=== PATIENT | female | born 1970 | race Caucasian/White ===

== ENCOUNTER 2019-03-06 06:28 | Inpatient (IN) | payer OTHER ==
[2019-02-26 15:41] LABS: BASOPHILS % (AUTO) 0.8 % (0-1); EOSINOPHILS # (AUTO) 0.1 X10'3 (0-0.9); EOSINOPHILS % (AUTO) 1.1 % (0-6); LYMPHOCYTES # (AUTO) 1.2 X10'3 (1.1-4.8); LYMPHOCYTES % (AUTO) 21.1 % (21-51); MEAN CORPUSCULAR HEMOGLOBIN 32.8 PG (27.0-31.0); MEAN CORPUSCULAR HGB CONC 34.5 g/dL (33.0-36.5); MEAN CORPUSCULAR VOLUME 95.1 FL (78-98); MONOCYTES # (AUTO) 0.5 X10'3 (0-0.9); MONOCYTES % (AUTO) 8.1 % (2-12); NEUTROPHILS # (AUTO) 4.1 X10'3 (1.8-7.7); NEUTROPHILS % (AUTO) 68.9 % (42-75); PRE OP HEMATOCRIT 42.5 % (35.0-45.0); PRE OP HEMOGLOBIN 14.6 g/dL (12.0-16.0); PRE OP PLATELET COUNT 210 X10'3 (140-440); RED BLOOD COUNT 4.47 X10'6 (4.20-5.60); RED CELL DISTRIBUTION WIDTH 12.8 % (11.5-14.5)
[2019-02-26 15:55] LABS: ALBUMIN/GLOBULIN RATIO 1.1 (1.1-1.5); ALKALINE PHOSPHATASE 78 IU/L (46-116); BLOOD UREA NITROGEN 18 MG/DL (7-18); CHLORIDE 104 MMOL/L (99-107); CREATININE 1.06 MG/DL (0.40-0.90); PRE OP ALT 34 U/L (30-65); PRE OP ANION GAP 6 (8-16); PRE OP AST 18 U/L (10-37); PRE OP BILIRUB, TOTAL 0.2 MG/DL (0.0-1.0); PRE OP GLUCOSE 85 MG/DL (70-104); PRE OP SODIUM 140 MMOL/L (135-145); TOTAL CARBON DIOXIDE 29.6 MMOL/L (24-32); TOTAL PROTEIN 7.5 G/DL (6.4-8.2); eGFR 55 ML/MIN
[2019-02-26 16:05] LABS: CLARITY,URINE CLEAR (Clear); COLOR,URINE YELLOW (Yellow); GLUCOSE, URINE NEGATIVE (Neg); KETONES,URINE NEGATIVE (Neg); LEUKOCYTE ESTERASE ,URINE NEGATIVE (Neg); NITRITES, URINE NEGATIVE (Neg); OCCULT BLOOD,URINE NEGATIVE (Neg); PH,URINE 5.5 (4.8-8.0); PROTEIN,URINE NEGATIVE (Neg); UROBILINOGEN,URINE 0.2 E.U/dL (0.2-1.0)
[2019-02-26 16:10] LABS: UA COLLECTION TYPE CLN CATCH MIDSTREAM
[~2019-03-06] VITALS: Ht 157.5 cm; Wt 72.6 kg
[2019-03-06] VITALS (24 sets, daily range): BP systolic 83–125; BP diastolic 50–76
[~2019-03-06 06:28] MED LIST: CELE100C98 PO; TERB250T4 PO; VANCOMYCIN INJ 1000 MG in NORMAL SALINE 250ml IV.SOLN IV ONE; albuterol 2.5 MG/3 ML nebule NEB ONE; cefazolin/dext.iso 2gm/100 ML IV ONE; famotidine 20mg tablet PO ONE; ringers solution, lacted 1,000 ML IV SCH
[2019-03-06] MEDS ORDERED: LIDOcaine 1% (10mg/ml) 2ml vial ONE (06:39)
[2019-03-06] MEDS ORDERED: ketorolac trometh. 30mg/ml inj. ONE (06:42)
[2019-03-06] MEDS ORDERED: ROPIVAcaine 0.5% (5mg/ml) 30ml vial ONE (06:43)
[2019-03-06] MEDS ORDERED: MIDAZolam 1mg/ml 10ml vial ONE (07:25)
[2019-03-06] MEDS ORDERED: morphine /PF 1mg/ml 10ml inj. ONE (07:26)
[2019-03-06] MEDS ORDERED: fentaNYL/PF 50MCG/1 ML 2ML syringe ONE (07:26)
[2019-03-06] MEDS ORDERED: propofol inj 20 ML IV ONE (08:03)
[2019-03-06] MEDS ORDERED: ePHEDrine 50MG/ML INJ. ONE (08:03)
[2019-03-06] MEDS ORDERED: naloxone 2mg/2ml inj 1.5 MG in normal saline 500ml IV soln 500 ML IV PRN (08:41)
[2019-03-06] MEDS ORDERED: ringers solution, lacted 1,000 ML IV SCH (08:41)
[2019-03-06] MEDS ORDERED: ondansetron/PF 4mg/2ml inj IV PRN ×3 (08:45→09:55)
[2019-03-06] MEDS ORDERED: morphine 4 MG/ML inj SYRINge IV PRN ×2 (08:45)
[2019-03-06] MEDS ORDERED: proCHLORperazine 10 MG/2 ml inj IV PRN (08:45)
[2019-03-06] MEDS ORDERED: diphenhydrAMINE 50 mg/ml inj IV PRN (08:45)
[2019-03-06] MEDS ORDERED: meperidine/PF 25mg/ml syringe IV PRN ×3 (08:45)
[2019-03-06] MEDS ORDERED: diphenhydrAMINE 50 mg/ml inj ONE (09:19)
--- NOTE | 2019-03-06 09:37 | NUR ---
Received from OR via BED , accompanied by Anesthesiologist DR ERNST and report given by Anesthesiologist. PT DROWSY, DENIES PAIN, RIGHT HIP W/GAUZE DRSG COVERING INCISION CDI, HEMOVAC TO BULB SUCTION, CALDWELL CATHETER TO GRAVITY DRAINAGE W/YELLOW URINE DRAINING. Addendum: 03/06/19 at 1008 by Le Mccauley RN Amended: Links added.
[2019-03-06] MEDS ORDERED: bisacodyl 10mg suppository rectal RC PRN (09:55)
[2019-03-06] MEDS ORDERED: mag hydrox/Alum hydrox/simeth 30ml oral suspension PO PRN (09:55)
[2019-03-06] MEDS ORDERED: magnesium hydroxide 30ml (MOM) UD suspension PO PRN (09:55)
[2019-03-06] MEDS ORDERED: acetaminophen 325mg tablet PO PRN (09:55)
[2019-03-06] MEDS ORDERED: diphenhydrAMINE 25mg capsule PO PRN ×2 (09:55)
[2019-03-06] MEDS ORDERED: metoclopramide 5 mg/ml inj IV PRN (09:55)
[2019-03-06] MEDS ORDERED: ceFAZolin 1GM/D5W- ADD-VANTAGE 50 ML IV ONE (10:05)
--- NOTE | 2019-03-06 11:00 | NUR ---
Patient in room ORTHO 4023. I have received report from Le BARRETO in recovery, and had the opportunity to ask questions and assume patient care.
--- NOTE | 2019-03-06 11:37 | NUR ---
PT COMFORTABLE, ITCHING SLIGHTLY IMPROVED W/NARCAN DRIP, PT ABLE TO WIGGLE AND MOVE LOWER LEGS, DERMATOME LEVEL S 3-4. Report called to receiving nurse. Transferred via BED 1 BAG OF PT Belongings SENT W/PT TO ROOM 4023A, RECEIVING RN AT BEDSIDE TO RECEIVE PT, BLL, CALL LIGHT GIVEN, SIDE RAILS UP X 2. Special Issues communicated to receiving nurse. YES. Addendum: 03/06/19 at 1156 by Le Mccauley RN Amended: Links added.
--- NOTE | 2019-03-06 11:50 | NUR ---
Pt arrived to the floor, alert and oriented, no c/o pain. Tucked in, repositioned, provided refreshments, started post-op vitals.
[2019-03-06] MEDS: acetaminophen 325mg tablet PO SCH ×2 (14:08→20:57)
[2019-03-06] MEDS: HYDROcodone/acetaminophen 10/325mg tab PO PRN ×3 (14:51→22:44)
[2019-03-06] MEDS: ceFAZolin 1GM/D5W- ADD-VANTAGE 50 ML IV SCH (16:11)
[2019-03-06] MEDS: potassium cl 20mEq in 1/2 NS 1,000 ML IV SCH ×2 (17:35→17:54)
--- NOTE | 2019-03-06 18:29 | NUR ---
Problems reprioritized. Patient report given, questions answered & plan of care reviewed with Brittani.
[2019-03-06] MEDS ORDERED: vancomycin/NS 1 GM ADD-VANTAGE 250 ML IV SCH (20:00)
[2019-03-06] MEDS: sennosides 8.6mg tablet PO SCH (20:56)
[2019-03-06] MEDS: ascorbic acid 500mg tablet PO SCH (20:57)
[2019-03-07] VITALS: BP 94/60
[2019-03-07] MEDS: ceFAZolin 1GM/D5W- ADD-VANTAGE 50 ML IV SCH (00:37)
[2019-03-07] MEDS: acetaminophen 325mg tablet PO SCH ×3 (02:00→14:00)
[2019-03-07 02:31] VITALS: BP 84/60
[2019-03-07] MEDS: potassium cl 20mEq in 1/2 NS 1,000 ML IV SCH ×3 (04:00→17:54)
[2019-03-07] MEDS: HYDROcodone/acetaminophen 10/325mg tab PO PRN ×4 (05:01→18:44)
[2019-03-07 06:00] VITALS: BP 95/52
[2019-03-07 06:21] LABS: BASOPHILS % (AUTO) 0.8 % (0-1); EOSINOPHILS # (AUTO) 0.1 X10'3 (0-0.9); EOSINOPHILS % (AUTO) 1.9 % (0-6); HEMATOCRIT 26.3 % (35.0-45.0); LYMPHOCYTES # (AUTO) 0.7 X10'3 (1.1-4.8); LYMPHOCYTES % (AUTO) 15.5 % (21-51); MEAN CORPUSCULAR HEMOGLOBIN 32.2 PG (27.0-31.0); MEAN CORPUSCULAR HGB CONC 34.1 g/dL (33.0-36.5); MEAN CORPUSCULAR VOLUME 94.6 FL (78-98); MEAN PLATELET VOLUME 9.3 FL (7.4-10.4); MONOCYTES # (AUTO) 0.4 X10'3 (0-0.9); MONOCYTES % (AUTO) 9.4 % (2-12); NEUTROPHILS # (AUTO) 3.1 X10'3 (1.8-7.7); NEUTROPHILS % (AUTO) 72.4 % (42-75); PLATELET COUNT 143 X10'3 (140-440); RED BLOOD COUNT 2.78 X10'6 (4.20-5.60); RED CELL DISTRIBUTION WIDTH 12.3 % (11.5-14.5); WHITE BLOOD COUNT 4.3 X10'3 (4.5-11.0)
[2019-03-07 06:29] LABS: ANION GAP 4 (8-16); CHLORIDE 103 MMOL/L (99-107); POTASSIUM 4.4 MMOL/L (3.5-5.1); SODIUM 133 MMOL/L (135-145); TOTAL CARBON DIOXIDE 25.9 MMOL/L (24-32)
--- NOTE | 2019-03-07 06:43 | NUR ---
reported to days. noted Mathias to see patient. answered questions pt had.
[2019-03-07] MEDS: terbinafine 250mg tablet PO SCH (07:51)
[2019-03-07] MEDS: multivitamins, therapeutics tablet PO SCH (07:51)
[2019-03-07] MEDS: ascorbic acid 500mg tablet PO SCH ×2 (07:51→19:43)
[2019-03-07] MEDS: enoxaparin 40mg/0.4ml syringe SQ SCH (07:52)
[2019-03-07 10:00] VITALS: BP 97/59
--- NOTE | 2019-03-07 15:58 | NUR ---
Pt s/p arthroplasty to right hip seen at bedside however pt unavailable. Written protein education with RD contact information left at bedside. Will remain available. Addendum: 03/07/19 at [address] Amended: Links added.
[2019-03-07 18:00] VITALS: BP 107/60
--- NOTE | 2019-03-07 18:32 | NUR ---
Problems reprioritized. Patient report given, questions answered & plan of care reviewed with [place] BARRETO.
[2019-03-07] MEDS: sennosides 8.6mg tablet PO SCH (19:45)
--- NOTE | 2019-03-07 19:58 | NUR ---
Patient in room ORTHO 4023. I have received report from Catrina BARRETO and had the opportunity to ask questions and assume patient care.
[2019-03-07 22:00] VITALS: BP 103/68
[2019-03-08] MEDS: HYDROcodone/acetaminophen 10/325mg tab PO PRN ×4 (01:34→13:11)
--- NOTE | 2019-03-08 05:31 | NUR ---
Pt drain and salvador catheter removed at this time intact and with no complications. Drain site covered with gauze and paper tape.
[2019-03-08 06:00] VITALS: BP 105/71
--- NOTE | 2019-03-08 06:25 | NUR ---
Patient in room ORTHO 4023. I have received report from [place] and had the opportunity to ask questions and assume patient care.
--- NOTE | 2019-03-08 06:25 | NUR ---
Problems reprioritized. Patient report given, questions answered & plan of care reviewed with Luz BARRETO.
[2019-03-08 07:54] LABS: BASOPHILS % (AUTO) 0.5 % (0-1); EOSINOPHILS # (AUTO) 0.1 X10'3 (0-0.9); HEMATOCRIT 25.9 % (35.0-45.0); HEMOGLOBIN 8.9 g/dl (12.0-16.0); LYMPHOCYTES # (AUTO) 0.8 X10'3 (1.1-4.8); LYMPHOCYTES % (AUTO) 14.6 % (21-51); MEAN CORPUSCULAR HEMOGLOBIN 32.4 PG (27.0-31.0); MEAN CORPUSCULAR HGB CONC 34.2 g/dL (33.0-36.5); MEAN CORPUSCULAR VOLUME 94.7 FL (78-98); MEAN PLATELET VOLUME 9.1 FL (7.4-10.4); MONOCYTES # (AUTO) 0.5 X10'3 (0-0.9); MONOCYTES % (AUTO) 8.3 % (2-12); NEUTROPHILS # (AUTO) 4.3 X10'3 (1.8-7.7); NEUTROPHILS % (AUTO) 75.6 % (42-75); PLATELET COUNT 154 X10'3 (140-440); RED BLOOD COUNT 2.74 X10'6 (4.20-5.60); RED CELL DISTRIBUTION WIDTH 12.6 % (11.5-14.5); WHITE BLOOD COUNT 5.7 X10'3 (4.5-11.0)
[2019-03-08] MEDS: terbinafine 250mg tablet PO SCH (09:27)
[2019-03-08] MEDS: ascorbic acid 500mg tablet PO SCH (09:28)
[2019-03-08] MEDS: enoxaparin 40mg/0.4ml syringe SQ SCH (09:28)
[2019-03-08] MEDS: multivitamins, therapeutics tablet PO SCH (09:28)
[2019-03-08 10:00] VITALS: BP 125/68
--- NOTE | 2019-03-08 17:33 | NUR ---
Reviewed discharge instructions with pt. Pt verbalized understanding. Pt is alert, oriented and in good spirits. Pt does not have c/o pain at this time. All of pt's belongings were returned to pt. Pt was wheeled downstairs to be driven home by her spouse.
== END 2019-03-08 17:30 | disposition home or self-care (01) | DRG 470 ==
LOC: PAS IN 06:28 → EDSTATUS 09:45 → ORTHO 4S 11:45
PROVIDERS: ADMIT Orthopaedic Surgery; ATTEND Orthopaedic Surgery
PROC: 0SR904Z Replacement of Right Hip Joint with Ceramic on Polyethylene Synthetic Substitute, Open Approach (ICD-10-PCS; principal; 2019-03-06 07:16)
DX: M16.0 Bilateral primary osteoarthritis of hip (principal); D62 Acute posthemorrhagic anemia; M70.61 Trochanteric bursitis, right hip; F41.9 Anxiety disorder, unspecified; F17.209 Nicotine dependence, unspecified, with unspecified nicotine-induced disorders; E66.8 Other obesity; Z68.29 Body mass index [BMI] 29.0-29.9, adult; Z90.710 Acquired absence of both cervix and uterus; Z80.9 Family history of malignant neoplasm, unspecified; Z79.899 Other long term (current) drug therapy
CPT/HCPCS: Z7506; Z7508; 36415; 73502; 76000; 80051; 80053; 81003; 82948; 85025; 85610; 85730; 86885; 86900; 86901; 87081; 94640; 97110; 97116; 97161; 97530; A6250; A6258; A6446; A6449; A6455; A7000; C1758; C1776; G0378; J0690; J1200; J1644; J1650; J1885; J2001; J2250; J2270; J2310; J2704; J2795; J3010; J3370; J3480; J7030; J7040; J7120; Q0163

== ENCOUNTER 2021-08-14 05:19 | Emergency (ER) | payer BC, OTHER ==
[~2021-08-14] VITALS: Ht 157.5 cm; Wt 72.0 kg
[~2021-08-14 05:19] MED LIST changes: -TERB250T4 PO; +TERB250T89 PO; -VANCOMYCIN INJ 1000 MG in NORMAL SALINE 250ml IV.SOLN IV ONE; -albuterol 2.5 MG/3 ML nebule NEB ONE; -cefazolin/dext.iso 2gm/100 ML IV ONE; -famotidine 20mg tablet PO ONE; -ringers solution, lacted 1,000 ML IV SCH
[2021-08-14] MEDS ORDERED: aspirin 81mg tab.chew PO ONE (07:15)
--- NOTE | 2021-08-14 07:21 | NUR ---
dr. shanks at bedside.
[2021-08-14] MEDS ORDERED: pantoprazole 40mg Tablet.DR PO ONE (07:25)
[2021-08-14] MEDS ORDERED: ondansetron 4mg rapidly disintigrating tab PO ONE (07:25)
[2021-08-14] MEDS ORDERED: acetaminophen 325mg tablet PO ONE (07:25)
[2021-08-14] MEDS ORDERED: famotidine 20mg tablet PO ONE (07:25)
[2021-08-14 07:37] VITALS: BP 110/77
[2021-08-14 09:07] LABS: BASOPHILS # (AUTO) 0.1 X10'3 (0-0.2); BASOPHILS % (AUTO) 1.4 % (0-1); EOSINOPHILS # (AUTO) 0.1 X10'3 (0-0.9); EOSINOPHILS % (AUTO) 1.8 % (0-6); HEMATOCRIT 44.3 % (35.0-45.0); LYMPHOCYTES # (AUTO) 1.3 X10'3 (1.1-4.8); LYMPHOCYTES % (AUTO) 22.2 % (21-51); MEAN CORPUSCULAR HEMOGLOBIN 32.3 PG (27.0-31.0); MEAN CORPUSCULAR HGB CONC 33.9 g/dL (33.0-36.5); MEAN CORPUSCULAR VOLUME 95.3 FL (78-98); MONOCYTES # (AUTO) 0.4 X10'3 (0-0.9); MONOCYTES % (AUTO) 6.8 % (2-12); NEUTROPHILS # (AUTO) 3.9 X10'3 (1.8-7.7); NEUTROPHILS % (AUTO) 67.8 % (42-75); PLATELET COUNT 204 X10'3 (140-440); RED BLOOD COUNT 4.65 X10'6 (4.20-5.60); RED CELL DISTRIBUTION WIDTH 14.2 % (11.5-14.5); WHITE BLOOD COUNT 5.7 X10'3 (4.5-11.0)
--- NOTE | 2021-08-14 09:14 | NUR ---
pt states pain remain 6/10 after med care manager. ambulated to/from restroom without incident.
[2021-08-14 09:16] LABS: ALANINE AMINOTRANSFERASE 34 U/L (12-78); ALBUMIN 3.8 G/DL (3.4-5.0); ALBUMIN/GLOBULIN RATIO 1.1 (1.1-1.5); ALKALINE PHOSPHATASE 83 IU/L (46-116); ANION GAP 5 (8-16); ASPARTATE AMINO TRANSFERASE 17 U/L (10-37); BILIRUBIN,TOTAL 0.4 MG/DL (0.1-1.0); BLOOD UREA NITROGEN 10 MG/DL (7-18); BUN/CREATININE RATIO 13.5 (6.6-38.0); CALCIUM 8.7 MG/DL (8.5-10.1); CHLORIDE 106 MMOL/L (99-107); CREATININE 0.74 MG/DL (0.40-0.90); GLUCOSE 89 MG/DL (70-104); POTASSIUM 4.2 MMOL/L (3.5-5.1); SODIUM 142 MMOL/L (135-145); TOTAL CARBON DIOXIDE 31.3 MMOL/L (24-32); TOTAL PROTEIN 7.3 G/DL (6.4-8.2); eGFR 82 ML/MIN
[2021-08-14 09:27] LABS: MAGNESIUM 2.4 MG/DL (1.5-2.4)
[2021-08-14] MEDS ORDERED: HYDR-3965 PO (10:59)
[2021-08-14] MEDS ORDERED: ONDA-103 PO (10:59)
--- NOTE | 2021-08-14 11:00 | NUR ---
dr. shanks at bedside for d/c. pt continues to report abd pain.
== END 2021-08-14 11:18 | disposition home or self-care (01) ==
LOC: ER 05:20
DX: R10.10 Upper abdominal pain, unspecified (principal); R19.7 Diarrhea, unspecified; R11.0 Nausea; K21.9 Gastro-esophageal reflux disease without esophagitis
CPT/HCPCS: 36415; 71045; 80053; 83735; 83880; 84145; 84484; 85025; 93005; 99285